=== PATIENT | female | born 1945 | race Caucasian/White ===

== ENCOUNTER 2018-12-08 09:09 | Emergency (ER) | payer MEDICAID, MEDICARE ==
[2018-12-08 09:43] VITALS: BP 98/47
--- NOTE | 2018-12-08 10:26 | UC ---
General HPI - HPI Summary HPI Summary: Patient presents to urgent care with his son. Patient is 70 feel female with some mild progressive dementia. Patient lives with one son by her sales designer taking over care appointments. Patient with some increased confusion and agitation. Patient is concerned she may have a UTI states this has happened in the past. Son notes she been urinating more frequent than normal. Patient without fevers or chills. Patient without nausea vomiting. Patient's been eating and drinking normally. Patient has not had complaints of dysuria. No abdominal pain. Patient poor historian distracted with conversation. Patient' s medications reviewed this visit. - History of Current Complaint Chief Complaint: UCGU Stated Complaint: URINARY Time Seen by Provider: 12/08/18 10:19 Hx Obtained From: Patient, Family/Chute Boss Onset/Duration: Gradual Onset Onset Severity: Mild Current Severity: None Pain Intensity: 0 - Allergy/Home Medications Allergies/Adverse Reactions: Allergies Allergy/AdvReac Type Severity Reaction Status Date / Time No Known Allergies Allergy Verified 12/08/18 09:43 PMH/Surg Hx/FS Hx/Imm Hx Previously Healthy: Yes - Surgical History Surgical History: None - Family History Known Family History: Positive: Non-Contributory - Social History Occupation: Unemployed Lives: With Family Alcohol Use: None Substance Use Type: None Smoking Status (MU): Never Smoked Tobacco Review of Systems All Other Systems Reviewed And Are Negative: Yes Constitutional: Positive: Other - increased confusion Eyes: Positive: Negative ENT: Positive: Negative Respiratory: Positive: Negative Cardiovascular: Positive: Negative Physical Exam - Summary Physical Exam Summary: Vital Signs Reviewed: Yes A+O name, - slight confusion to reporting place, no distress, pleasant, ambulatory without difficulty or assistance, Eyes: Conjunctiva Clear, FCO. EOM intact and full ENT: Hearing grossly normal TM x 2 clear, mmoist, uvula midline, no exudate, no erythema Neck: Positive: Supple Respiratory: Positive: No respiratory distress, No accessory muscle use + CTA throughout no w/r Cardiovascular: RRR nl s1, s2 no m/r CBT <2 sec abd soft + BS nt/nd no guarding, no distension, no CVA tenderness Musculoskeletal Exam: LOBO x 4 without difficulty Strength Intact, ROM Intact Neurological: Positive: Alert, + sensation throughout Psychological: Positive: Normal Response To examiner Skin: Positive: no rash, no ecchymosis Triage Information Reviewed: Yes Vital Signs: Initial Vital Signs Temp 98.6 F 12/08/18 09:33 Pulse 77 12/08/18 09:33 Resp 18 12/08/18 09:33 BP 98/47 12/08/18 09:33 Pulse Ox 100 12/08/18 09:33 Course/Dx - Course Course Of Treatment: Patient presents to urgent care with her son. Symptoms concerned she may have UTI she's had some confusion which is happened to her in the past of UTI. Patient does have some progressive dementia. Patient denies any complaints. Some states he noticed that she's been urinating more frequently and thinks her urine has a strong odor. On exam vital signs are stable. Patient denies focal findings. Patient does have some confusion some states she's answering questions or baseline. Urine consistent with UTI. We'll start antibiotics and culture urine. Aware of the Culture May Have a Follow-Up Phone Call. Recommend She Follow up with Her PCP As Scheduled Next Week. Strict Return Precautions with Regards Department with Any Changes Progression. Son Agreeable to Plan. - Diagnoses Provider Diagnosis: UTI (urinary tract infection) Discharge ED - Sign-Out/Discharge Documenting (check all that apply): Patient Departure All imaging exams completed and their final reports reviewed: No Studies - Discharge Plan Condition: Stable Disposition: HOME Prescriptions: Cephalexin CAP* [Keflex 500 CAP*] 500 mg PO BID #14 cap Patient Education Materials: Urinary Tract Infection in Women (ED) Referrals: No Primary Care Phys,NOPCP [Primary Care Provider] - Additional Instructions: - stay well hydrated - drink plenty of non-alcoholic, non caffinated beverages - your urine will be further tested - if you require any changes to your treatment, we will contact you - this usually take 2 days - Contact your primary doctor to arrange a follow-up appointment next week. Contact your doctor or return with questions or concerns - Take your antibiotics exactly as prescribed until gone - Okay to alternate ibuprofen (Advil, Motrin) and Tylenol every 3 hours for pain. Take with food - Keep your appointment as scheduled next Tuesday. If she develops fevers, pain, vomiting, rash, increased confusion or you have any other concerns it is recommended you go to the emergency department for further treatment and evaluations - Billing Disposition and Condition Condition: STABLE Disposition: Home
== END 2018-12-08 10:30 | disposition home or self-care (01) ==
LOC: UCCORT 09:09
DX: N39.0 Urinary tract infection, site not specified (principal); F03.90 Unspecified dementia, unspecified severity, without behavioral disturbance, psychotic disturbance, mood disturbance, and anxiety
CPT/HCPCS: 81003; 87077; 87086; 99212; G0463

== ENCOUNTER 2020-06-10 17:00 | Observation (INO) ==
[2020-06-10] MEDS ORDERED: NS 0.9% 1000 ml BAG 1,000 ML IV ONE (18:02)
[2020-06-10] MEDS ORDERED: Morphine 4 MG/ML VIAL (1 ml) IV ONE (18:02)
[2020-06-10] MEDS ORDERED: Lidocaine 1% MPF 5 ML VIAL INJ ONE (19:57)
[2020-06-10 21:44] LABS: ABS Basophils 0.1 10^3/ul (0-0.2); ABS Lymphocytes 0.9 10^3/ul (1.0-4.8); ABS Monocytes 0.5 10^3/ul (0-0.8); ABS Neutrophils 10.5 10^3/ul (1.5-7.7); Eosinophil % 0.3 %; Hematocrit 36 % (35-47); Hemoglobin 12.3 g/dL (12.0-16.0); Lymphocyte % 7.4 %; Mean Corpuscular HGB Conc 34 g/dL (31-36); Mean Corpuscular Hemoglobin 30 pg (27-31); Mean Corpuscular Volume 87 fL (80-97); Mean Platelet Volume 7.1 fL (7.4-10.4); Platelet Count 364 10^3/uL (150-450); Red Blood Count 4.18 10^6 /uL (3.70-4.87); Red Cell Distribution Width 16 % (10-15)
[2020-06-10 21:53] LABS: Activated Partial Thrombo Time 29.3 seconds (26.0-38.0); INR 1.12 (0.82-1.09)
[2020-06-10 22:03] LABS: Albumin 3.6 g/dL (3.2-5.2); Albumin/Globulin Ratio 1.2 (1-3); C Reactive Protein 17.35 mg/L (<8.01); Calcium 9.2 mg/dL (8.6-10.3); EGFR African American 118.2 (>60); EGFR Non-African American 97.7 (>60); Globulin 3.1 g/dL (2-4); Potassium 4.2 mmol/L (3.5-5.0); Total Bilirubin 0.5 mg/dL (0.2-1.0); Total Protein 6.7 g/dL (6.4-8.9)
[2020-06-10] MEDS ORDERED: NS 0.9% 1000 ml BAG 1,000 ML IV SCH (22:45)
[2020-06-11 05:30] LABS: ABS Eosinophils 0.1 10^3/ul (0-0.6); ABS Lymphocytes 1.3 10^3/ul (1.0-4.8); ABS Monocytes 0.6 10^3/ul (0-0.8); ABS Neutrophils 5.9 10^3/ul (1.5-7.7); Eosinophil % 1.3 %; Hematocrit 32 % (35-47); Hemoglobin 10.8 g/dL (12.0-16.0); Mean Corpuscular HGB Conc 34 g/dL (31-36); Mean Corpuscular Hemoglobin 29 pg (27-31); Mean Corpuscular Volume 87 fL (80-97); Mean Platelet Volume 7.3 fL (7.4-10.4); Platelet Count 351 10^3/uL (150-450); Red Blood Count 3.66 10^6 /uL (3.70-4.87); Red Cell Distribution Width 15 % (10-15); White Blood Count 7.9 10^3/uL (3.5-10.8)
[2020-06-11 05:45] LABS: BUN/Creatinine Ratio 22.2 (8-20); Calcium 8.4 mg/dL (8.6-10.3); EGFR African American 133.5 (>60); EGFR Non-African American 110.4 (>60); Potassium 4.1 mmol/L (3.5-5.0)
[2020-06-11 12:32] LABS: Urine Appearance Clear; Urine Bilirubin Negative (Negative); Urine Blood Negative (Negative); Urine Color Amber; Urine Glucose Negative (Negative); Urine Ketones Trace (Negative); Urine Nitrite Negative (Negative); Urine Protein 1+(30 mg/dL) (Negative); Urine Specific Gravity 1.024 (1.010-1.030); Urine Urobilinogen Negative (Negative)
[2020-06-11 12:40] LABS: Urine Bacteria Absent (Absent); Urine Red Blood Cell Trace(0-2/hpf) (Absent); Urine Squamous Epithelial Cell Present (Absent); Urine White Blood Cell Trace(0-5/hpf) (Absent)
[2020-06-11 13:59] LABS: Hematocrit 35 % (35-47); Hemoglobin 11.7 g/dL (12.0-16.0); Mean Corpuscular HGB Conc 34 g/dL (31-36); Mean Corpuscular Hemoglobin 29 pg (27-31); Mean Corpuscular Volume 87 fL (80-97); Mean Platelet Volume 7.3 fL (7.4-10.4); Platelet Count 387 10^3/uL (150-450); Red Blood Count 3.98 10^6 /uL (3.70-4.87); Red Cell Distribution Width 15 % (10-15); White Blood Count 8.1 10^3/uL (3.5-10.8)
[2020-06-12 15:48] VITALS: BP 125/67
== END 2020-06-12 17:30 | disposition home or self-care (01) ==
LOC: SSU 17:00 → ED 17:00 → SSU 06-11 01:18
PROVIDERS: ADMIT Internal Medicine; ATTEND Student in an Organized Health Care Education/Training Program

== ENCOUNTER 2020-07-05 13:25 | Inpatient (IN) ==
[2020-07-05] MEDS ORDERED: NS 0.9% 1000 ml BAG 1,000 ML IV ONE (14:04)
[2020-07-05] MEDS ORDERED: levETIRAcetam 1000MG IVPREMIX 1,000 MG/100 ML BAG IVPB ONE (14:37)
[2020-07-05 14:54] LABS: ABS Basophils 0.1 10^3/ul (0-0.2); ABS Eosinophils 0.1 10^3/ul (0-0.6); ABS Lymphocytes 1.1 10^3/ul (1.0-4.8); ABS Monocytes 0.5 10^3/ul (0-0.8); ABS Neutrophils 8.4 10^3/ul (1.5-7.7); Eosinophil % 0.6 %; Hematocrit 36 % (35-47); Hemoglobin 12.2 g/dL (12.0-16.0); Lymphocyte % 10.5 %; Mean Corpuscular HGB Conc 34 g/dL (31-36); Mean Corpuscular Hemoglobin 30 pg (27-31); Mean Corpuscular Volume 87 fL (80-97); Mean Platelet Volume 6.6 fL (7.4-10.4); Platelet Count 560 10^3/uL (150-450); Red Blood Count 4.11 10^6 /uL (3.70-4.87); Red Cell Distribution Width 17 % (10-15); White Blood Count 10.1 10^3/uL (3.5-10.8)
[2020-07-05 15:02] LABS: INR 1.16 (0.82-1.09)
[2020-07-05 15:20] LABS: Albumin 3.4 g/dL (3.2-5.2); BUN/Creatinine Ratio 23.4 (8-20); Calcium 9.3 mg/dL (8.6-10.3); EGFR African American 109.5 (>60); EGFR Non-African American 90.5 (>60); Globulin 3.3 g/dL (2-4); Potassium 4.1 mmol/L (3.5-5.0); Total Bilirubin 0.7 mg/dL (0.2-1.0); Total Protein 6.7 g/dL (6.4-8.9)
[2020-07-06] MEDS: levETIRAcetam 500 MG IVPREMIX 500 MG/100 ML BAG IV SCH ×2 (04:00→16:40)
[2020-07-06 05:51] LABS: ABS Basophils 0.1 10^3/ul (0-0.2); ABS Eosinophils 0.3 10^3/ul (0-0.6); ABS Lymphocytes 1.1 10^3/ul (1.0-4.8); ABS Monocytes 0.5 10^3/ul (0-0.8); ABS Neutrophils 6.8 10^3/ul (1.5-7.7); Eosinophil % 3.1 %; Hematocrit 32 % (35-47); Hemoglobin 10.5 g/dL (12.0-16.0); Lymphocyte % 12.9 %; Mean Corpuscular HGB Conc 33 g/dL (31-36); Mean Corpuscular Hemoglobin 29 pg (27-31); Mean Corpuscular Volume 88 fL (80-97); Mean Platelet Volume 6.7 fL (7.4-10.4); Nucleated Red Blood Cells % 0.1; Platelet Count 476 10^3/uL (150-450); Red Blood Count 3.68 10^6 /uL (3.70-4.87); Red Cell Distribution Width 17 % (10-15); White Blood Count 8.9 10^3/uL (3.5-10.8)
[2020-07-06 06:07] LABS: BUN/Creatinine Ratio 33.3 (8-20); Calcium 8.5 mg/dL (8.6-10.3); EGFR African American 164.4 (>60); EGFR Non-African American 135.8 (>60); Potassium 3.7 mmol/L (3.5-5.0)
[2020-07-06] MEDS ORDERED: Dextrose 50% Syringe 50 ml 25 GM/50 ML SYRINGE IV PUSH PRN (06:56)
[2020-07-06] MEDS ORDERED: Potassium Chlor 20 meq TAB.ER PO ONE (09:01)
[2020-07-06] MEDS: levETIRAcetam IV 500 MG in NS 0.9% 100 ml BAG 100 ML IVPB SCH (16:32)
[2020-07-07] MEDS: levETIRAcetam IV 500 MG in NS 0.9% 100 ml BAG 100 ML IVPB SCH (04:57)
[2020-07-07 05:06] LABS: ABS Basophils 0.1 10^3/ul (0-0.2); ABS Eosinophils 0.3 10^3/ul (0-0.6); ABS Lymphocytes 1.3 10^3/ul (1.0-4.8); ABS Monocytes 0.6 10^3/ul (0-0.8); ABS Neutrophils 6.6 10^3/ul (1.5-7.7); Eosinophil % 3.8 %; Hematocrit 31 % (35-47); Hemoglobin 10.3 g/dL (12.0-16.0); Mean Corpuscular HGB Conc 34 g/dL (31-36); Mean Corpuscular Hemoglobin 29 pg (27-31); Mean Corpuscular Volume 87 fL (80-97); Mean Platelet Volume 6.7 fL (7.4-10.4); Platelet Count 477 10^3/uL (150-450); Red Blood Count 3.54 10^6 /uL (3.70-4.87); Red Cell Distribution Width 17 % (10-15)
[2020-07-07 05:13] LABS: BUN/Creatinine Ratio 28.3 (8-20); Calcium 8.4 mg/dL (8.6-10.3); EGFR African American 160.2 (>60); EGFR Non-African American 132.4 (>60); Magnesium 1.9 mg/dL (1.9-2.7); Potassium 4.1 mmol/L (3.5-5.0)
[2020-07-07] MEDS: levETIRAcetam 500 MG IVPREMIX 500 MG/100 ML BAG IVPB SCH (16:29)
[2020-07-07] MEDS ORDERED: Polyethylene Glycol 3350 17 GM PACKET PO PRN (17:57)
[2020-07-07] MEDS: Senna TAB 8.6 mg TAB PO PRN (21:31)
[2020-07-08] MEDS: levETIRAcetam 500 MG IVPREMIX 500 MG/100 ML BAG IVPB SCH ×2 (05:20→18:02)
[2020-07-08] MEDS: Senna TAB 8.6 mg TAB PO PRN (20:19)
[2020-07-09] MEDS: levETIRAcetam 500 MG IVPREMIX 500 MG/100 ML BAG IVPB SCH ×2 (04:53→16:50)
[2020-07-09] MEDS ORDERED: Iohexol 300 (CONTRAST) 10 ML SDV IV ONE (13:44)
[2020-07-10] MEDS: levETIRAcetam 500 MG IVPREMIX 500 MG/100 ML BAG IVPB SCH (07:55)
[2020-07-10 11:36] LABS: Body Fluid Source Peritonial Fluid
[2020-07-10 14:44] LABS: Body Fluid Mono 6 %
[2020-07-11 08:20] VITALS: BP 113/65
== END 2020-07-11 10:15 | DRG 85 ==
LOC: ED 13:25 → ICU 18:12 → SSU 07-06 12:38
PROVIDERS: ADMIT Internal Medicine; ATTEND Hospitalist